=== PATIENT | female | born 1935 | race Caucasian/White ===

== ENCOUNTER 2018-10-16 13:49 | Inpatient (IN) | payer OTHER ==
[~2018-10-16] VITALS: Ht 152.4 cm; Wt 63.0 kg
[~2018-10-16 13:49] MED LIST: ALBU8.5H8 INH; ASPI-903 PO; CARV25TA79 PO; FURO-109 PO; HYDR25TA6 PO; LEVO75TA5 PO; Levofloxacin PO; OMEP20CA16 PO; ZOC10 PO
--- NOTE | 2018-10-16 17:02 | ERD ---
ER Documentation Chief Complaint Chief Complaint SOB HPI The patient is a 83-year-old female, presenting to the ER because of acute d yspnea, dry cough for the last 2 days, worse today. She had similar symptoms previously, denies chest pain, abdominal pain, vomiting, dysuria, diarrhea. She does not smoke nor drink Past medical history: Dyslipidemia, hypertension, hypothyroidism, history of CHF, GERD Past surgical history: None ROS All systems reviewed and are negative except as per history of present illness. Medications Home Meds Reported Medications Albuterol Sulfate (Proair Respiclick) 90 Mcg Aer.pow.ba, 1 PUFF INHALATION Q4 PRN for WHEEZING AND SOB, #1 BOTTLE 10/16/18 Levothyroxine Sodium* (Levothyroxine Sodium*) 75 Mcg Tablet, 75 MCG PO BEFORE BREAKFAST, #30 TAB 10/16/18 Carvedilol* (Carvedilol*) 25 Mg Tablet, 25 MG PO DAILY, #60 TAB 10/16/18 Simvastatin* (Zocor*) 10 Mg Tablet, 10 MG PO QHS, #30 TAB 10/16/18 Allopurinol* (Allopurinol*) 100 Mg Tablet, 100 MG PO DAILY, TAB 10/16/18 Aspirin* (Aspirin* EC) 81 Mg Tablet.dr, 81 MG PO DAILY, TAB 10/16/18 Discontinued Reported Medications Aspirin* (Aspirin* Chew) 81 Mg Tab.chew, 81 MG PO DAILY 09/02/12 Simvastatin (Simvastatin) 10 Mg Tablet, 10 MG PO DAILY 09/02/12 Levothyroxine Sodium* (Levothyroxine Sodium*) 75 Mcg Tablet, 75 MCG PO DAILY 09/02/12 Carvedilol* (Carvedilol*) 25 Mg Tablet, 25 MG PO DAILY 09/02/12 Omeprazole* (Omeprazole*) 20 Mg Capsule.dr, 20 MG PO DAILY 09/02/12 Hydrochlorothiazide (Hydrochlorothiazide) 25 Mg Tablet, 25 MG PO DAILY 09/02/12 Discontinued Scripts Albuterol Sulfate* (Proair HFA*) 8.5 Gm Hfa.aer.ad, 2 PUFF INH Q4H PRN for WHEEZING AND SOB for 30 Days, INHALER 3 Refills Prov:MARÍA SZYMANSKI. 06/08/15 Furosemide* (Lasix*) 40 Mg Tab, 20 MG PO DAILY for 30 Days, TAB 1 Refill Prov:MARÍA SZYMANSKI S. 06/08/15 [Levofloxacin] 500 MG TAB No Conflict Check, 500 MG PO DAILY@06 for 5 Days, TAB Prov:MARÍA SZYMANSKI S. 06/08/15 Allergies Allergies: Coded Allergies: No Known Drug Allergies (Verified Allergy, Mild, 10/16/18) PMhx/Soc History of Surgery: No Anesthesia Reaction: Yes Hx Neurological Disorder: No Hx Respiratory Disorders: Yes (PNA -4yrs ago) Hx Cardiac Disorders: Yes (hypertension; cholesterol) Hx Psychiatric Problems: No Hx Miscellaneous Medical Probl: Yes (HTN, hypothyroidism, hyperlipidemia) Hx Alcohol Use: No Hx Substance Use: No Hx Tobacco Use: No Physical Exam Vitals Vital Signs Date Temp Pulse Resp B/P (MAP) Pulse Ox O2 O2 Flow FiO2 Time Delivery Rate 10/16/18 65 16 139/67 100 18:04 (91) 10/16/18 82 20 95 21 17:32 10/16/18 Nasal 3 17:10 Cannula 10/16/18 98.4 66 18 175/80 91 13:54 (111) Physical Exam Const: No acute distress. Head: Atraumatic. Eyes: Normal Conjunctiva. ENT: Normal External Ears, Nose and Mouth. Neck: Full range of motion. No meningismus. Resp: Tachypneic, bilateral expiratory wheezes Cardio: Regular rate and rhythm. Abd: Soft, non distended, normal bowel sounds, non tender. Skin: No petechiae or rashes. Back: No midline or flank tenderness. Ext: No cyanosis, or edema. Neur: Awake and alert. No focal deficit Psych: Normal Mood and Affect. Result Diagram: 10/16/18 1727 10/16/18 1727 Results 24 hrs Laboratory Tests Test 10/16/18 17:27 White Blood Count 8.3 10^3/ul Red Blood Count 5.02 10^6/ul Hemoglobin 14.8 g/dl Hematocrit 45.6 % Mean Corpuscular Volume 90.8 fl Mean Corpuscular Hemoglobin 29.5 pg Mean Corpuscular Hemoglobin Concent 32.5 g/dl Red Cell Distribution Width 13.2 % Platelet Count 192 10^3/UL Mean Platelet Volume 12.4 fl Immature Granulocytes % 0.100 % Neutrophils % 44.3 % Lymphocytes % 40.7 % Monocytes % 6.7 % Eosinophils % 7.5 % Basophils % 0.7 % Nucleated Red Blood Cells % 0.0 /100WBC Immature Granulocytes # 0.010 10^3/ul Neutrophils # 3.7 10^3/ul Lymphocytes # 3.4 10^3/ul Monocytes # 0.6 10^3/ul Eosinophils # 0.6 10^3/ul Basophils # 0.1 10^3/ul Nucleated Red Blood Cells # 0.0 10^3/ul Prothrombin Time 13.0 Sec Prothrombin Time Ratio 1.0 INR International Normalized Ratio 0.97 Activated Partial Thromboplast Time 26.9 Sec Sodium Level 141 mmol/L Potassium Level 4.4 mmol/L Chloride Level 102 mmol/L Carbon Dioxide Level 31 mmol/L Anion Gap 8 Blood Urea Nitrogen 18 mg/dl Creatinine 0.68 mg/dl Est Glomerular Filtrat Rate mL/min mL/min Glucose Level 114 mg/dl Calcium Level 9.6 mg/dl Troponin I < 0.012 ng/ml Current Medications Medications Dose Sig/Lorenzo Start Time Status Last (Trade) Ordered Route PRN Stop Time Admin Dose Reason Admin 5 mg ONCE STAT 10/16/18 DC 10/16/18 Levalbuterol INH 17:09 17:32 (Xopenex 10/16/18 17:11 Neb) Ipratropium 2 mg ONCE STAT 10/16/18 DC 10/16/18 [place]on INH 17:09 17:32 (Atrovent 10/16/18 17:11 0.02% (Neb)) 125 mg ONCE ONCE 10/16/18 DC 10/16/18 Methylprednis IV 17:30 17:29 olone Sodium 10/16/18 17:31 Succinate (Solu-Medrol) Procedures/[place] [address] Radiology Main Line: [phone] DIAGNOSTIC IMAGING REPORT Patient: BRIANNA GARZA : 1935 Age: 83 Sex: F MR #: [id number] DOS: 10/16/18 1708 Ordering MD: FERNANDA HALL MD Location: E/R Room/Bed: PROCEDURE: XR Chest. CLINICAL INDICATION: Shortness of breath. TECHNIQUE: Single frontal view. COMPARISON: 06/08/2015. FINDINGS: The lungs are clear. The heart size is normal. There is no pleural effusion. There is no pneumothorax. IMPRESSION: 1. Normal chest radiograph. RPTAT: QQ .Juan Diego Bobo MD, MD Date Time Electronically viewed and signed by .Juan Diego Bobo MD, MD on 10/16/2018 18:24 .R/ CC: FERNANDA HALL MD [phone] EKG: Read by emergency physician Rate/Rhythm: Normal Sinus Rhythm 70 beats/min QRS, ST, T-waves: No ST elevation, no T inversion, low voltage Impression: Abnormal EKG MEDICAL MAKING DECISION: The patient is a 83-year-old female, presenting with acute asthma exacerbation with hypoxemia, was treated with Xopenex 5 mg and Atrovent 2 mg continuous nebulizer and Solu-Medrol 125 mg IV for acute asthma ex acerbation with good response. However her O2 saturation is fluctuated between 88 to 92%, unstable to be discharged The differential diagnoses considered include but are not limited to asthma, COPD, pneumonia, pulmonary embolus, pleural effusion, congestive heart failure. Departure Diagnosis: Primary Impression: Acute asthma Additional Impression: Hypoxemia Condition: Stable Comments I discussed the findings with the patient. I discussed the patient with Dr. Tariq at 6:50 PM, who was made aware of the lab, the treatment, the patient condition. The patient is admitted to [facility] Disclaimer: Inadvertent spelling and grammatical errors are likely due to EHR/dictation software use and do not reflect on the overall quality of patient care. Also, please note that the electronic time recorded on this note does not necessarily reflect the actual time of the patient encounter. FERNANDA HALL MD October 16, 2018 17:02
[2018-10-16] MEDS ORDERED: IPRATROPIUM (NEB) 0.5 MG/2.5 ML AMP INH STA (17:09)
[2018-10-16] MEDS ORDERED: LEVALBUTEROL (NEB) 1.25 MG/0.5 ML AMP INH STA (17:09)
[2018-10-16] MEDS ORDERED: ALLO100T PO (17:27)
[2018-10-16] MEDS ORDERED: ASPI-817 PO (17:27)
[2018-10-16] MEDS ORDERED: CARV25TA79 PO (17:28)
[2018-10-16] MEDS ORDERED: SIMV10TA PO (17:28)
[2018-10-16] MEDS ORDERED: LEVO75TA5 PO (17:29)
[2018-10-16] MEDS ORDERED: ALBU90AE INHALATION (17:29)
[2018-10-16] MEDS ORDERED: METHYLPREDNISOLONE 125 MG INJ IV ONE (17:30)
--- NOTE | 2018-10-16 19:55 | HP ---
Date/Time of Note Date/Time of Note DATE: 10/16/18 TIME: 19:55 Assessment/Plan VTE Prophylaxis SCD applied (from Nsg): Yes Pharmacological prophylaxis: NA/contraindicated Pharm contraindication: low risk/ambulating Lines/Catheters IV Catheter Type (from Nrsg): Saline Lock Assessment/Plan Hospital Course This is a 83-year-old female being admitted to the telemetry floor for: #1 dyspnea: Likely secondary to asthma exacerbation. Patient does have a history of diastolic CHF and her daughter does report that she has been having dyspnea on ambulation which she is unsure if is related to her current state. She does not appear to have any signs of volume overload at the current time. Nonetheless given her history we will also check a echocardiogram to assess heart morphology. Scheduled nebulizers, prednisone 40 mg burst p.o. #2 acute asthma exacerbation: Scheduled nebulizers, p.o. steroid burst, chest x- ray is normal and patient is not having any productive sputum and no fevers no antibiotics indicated at the current time. Hold beta-edu at the current time given her wheezing. #3 hypothyroidism: Check TSH, continue levothyroxine #4 history of diastolic CHF: Appears euvolemic at the current time, however will check a echocardiogram to assess heart morphology given her dyspnea. #5 hyperlipidemia: Check lipid panel, continue statin #6 DVT GI prophylaxis: SCDs, Protonix Further treatment strategy will be implemented as per the clinical course. Result Diagram: 10/16/18 1727 10/16/18 1727 Results 24hrs Laboratory Tests Test 10/16/18 17:27 White Blood Count 8.3 # Red Blood Count 5.02 Hemoglobin 14.8 Hematocrit 45.6 Mean Corpuscular Volume 90.8 Mean Corpuscular Hemoglobin 29.5 Mean Corpuscular Hemoglobin Concent 32.5 Red Cell Distribution Width 13.2 Platelet Count 192 Mean Platelet Volume 12.4 H Immature Granulocytes % 0.100 Neutrophils % 44.3 Lymphocytes % 40.7 Monocytes % 6.7 Eosinophils % 7.5 H Basophils % 0.7 Nucleated Red Blood Cells % 0.0 Immature Granulocytes # 0.010 Neutrophils # 3.7 Lymphocytes # 3.4 H Monocytes # 0.6 Eosinophils # 0.6 H Basophils # 0.1 Nucleated Red Blood Cells # 0.0 Prothrombin Time 13.0 Prothrombin Time Ratio 1.0 INR International Normalized Ratio 0.97 Activated Partial Thromboplast Time 26.9 Sodium Level 141 Potassium Level 4.4 Chloride Level 102 Carbon Dioxide Level 31 Anion Gap 8 Blood Urea Nitrogen 18 Creatinine 0.68 Est Glomerular Filtrat Rate mL/min Glucose Level 114 Calcium Level 9.6 Troponin I < 0.012 HPI/ROS Admit Date/Time Admit Date/Time Hx of Present Illness cc: SOB This is a 83-year-old female with a past medical history of asthma, hyperlipidemia, hypothyroidism who presented to the emergency department with cough and dyspnea since Monday. Family was present at the bedside. Family patient reported that patient started expensing a dry cough on Monday and shortness of breath. She had dyspnea with ambulating. Family did report that the shortness of breath and her breathing got worse and they did notice that she was wheezing. Denies any fevers or productive phlegm. allergies: nkda meds: ROS Const: As per HPI Eyes : No pain discharge or redness or change in visual acuity ENT: No pain, sore throat, congestion, congestion, dysphagia or discharge Respiratory: As per HPI Cardiovascular: No chest pain, palpitation, PND, or edema GI : no change in appetite, abdominal pain, nausea, vomiting, diarrhea, constipation, or change in the color his stool Genitourinary: No dysuria, hematuria, flank pain , discharge or CVA tenderness Musculoskeletal: No joint pain, back pain, neck pain, restricted range of motion in neck or joints Skin: No rash, bruising or hives Neuro: No headache, dizziness, syncope, seizure, focal weakness Endocrine: No polyuria, polydipsia, temperature intolerance Psych: No hallucination, depression, anxiety or suicidal ideation PMH/Family/Social Past Medical History Dyslipidemia, hypertension, hypothyroidism, history of diastolic CHF, GERD Medications Current Medications Allopurinol (Zyloprim) 100 mg DAILY PO ; Start 10/17/18 at 09:00; Status UNV Aspirin (Halfprin) 81 mg DAILY PO ; Start 10/17/18 at 09:00; Status UNV Levothyroxine Sodium (Synthroid) 75 mcg BEFORE BREAKFAST PO ; Start 10/17/18 at 07:00; Status UNV Miscellaneous Information 10 mg QHS PO ; Start 10/16/18 at 21:00; Status UNV IV Flush (NS 3 ml) 3 ml PER PROTOCOL IV ; Start 10/16/18 at 20:00; Status UNV Ondansetron HCl (Zofran Inj) 4 mg Q6H PRN IV NAUSEA/VOMITING; Start 10/16/18 at 20:00; Status UNV Acetaminophen (Tylenol Tab) 650 mg Q6H PRN PO .PAIN 1-3 OR TEMP; Start 10/16/18 at 20:00; Status UNV Docusate Sodium (Colace) 100 mg Q12H PRN PO .CONSTIPATION; Start 10/16/18 at 20:00; Status UNV Bisacodyl (Dulcolax) 5 mg DAILY PRN PO .CONSTIPATION; Start 10/16/18 at 20:00; Status UNV Pantoprazole (Protonix Tab) 40 mg DAILY@06 PO ; Start 10/17/18 at 06:00; Status UNV Albuterol/ Ipratropium (Duoneb) 3 ml Q4H RESP THERAPY HHN ; Start 10/16/18 at 21:00; Status UNV Levalbuterol (Xopenex Neb) 1.25 mg Q2 PRN HHN SHORTNESS OF BREATH; Start 10/16/18 at 20:00; Status UNV Coded Allergies: No Known Drug Allergies (Verified Allergy, Mild, 10/16/18) Past Surgical History Past Surgical Hx: no surgical history Family History Significant Family History: no pertinent family hx Social History Alcohol Use: none Smoking Status: Never smoker Drug Use: none Exam/Review of Systems Vital Signs Vitals Vital Signs Date Temp Pulse Resp B/P (MAP) Pulse Ox O2 O2 Flow FiO2 Time Delivery Rate 10/16/18 66 19 126/70 97 Nasal 3.0 19:21 (88) Cannula 10/16/18 21 17:32 10/16/18 98.4 13:54 Exam Exam General: Patient is a pleasant female currently lying in bed in no acute distress, but she does have a dry cough. HEENT: Atraumatic, normocephalic. The pupils are equal, round and reactive. Extraocular motor are intact Neck: Supple with full range of motion. No rigidity or meningismus Chest: Nontender Lungs: Expiratory wheezing, nonlabored breathing, dry cough Heart: Normal S1-S2, Regular rhythm and rate. No murmur, S3, or S4 Abdomen: Soft , morbidly obese, nontender, nondistended , bowel sounds are present. No guarding no rebound tenderness , No masses or organomegaly. No costovertebral temporal angle mass Extremities: Normal to inspection, no edema no cyanosis Neurologic: Normal mental status, speech normal, cranial nerves II through XII are intact, motor and sensory are intact, no focal weakness Additional Comments PROCEDURE: XR Chest. CLINICAL INDICATION: Shortness of breath. TECHNIQUE: Single frontal view. COMPARISON: 06/08/2015. FINDINGS: The lungs are clear. The heart size is normal. There is no pleural effusion. There is no pneumothorax. IMPRESSION: 1. Normal chest radiograph. RPTAT: QQ .Juan Diego Bobo MD, MD Date Time Electronically viewed and signed by .Juan Diego Bobo MD, MD on 10/16/2018 18:24 .R/ CC: FERNANDA HALL MD [phone] NOE YOST October 16, 2018 19:55
[2018-10-16] MEDS ORDERED: NACL 0.9% 3 ML SYG IV SCH (20:00)
[2018-10-16] MEDS ORDERED: ONDANSETRON 4 MG INJ IV PRN (20:00)
[2018-10-16] MEDS ORDERED: BISACODYL (EC) 5 MG TAB PO PRN (20:00)
[2018-10-16] MEDS ORDERED: ACETAMINOPHEN 325 MG TAB PO PRN (20:00)
[2018-10-16] MEDS ORDERED: LEVALBUTEROL (NEB) 1.25 MG/0.5 ML AMP HHN PRN (20:00)
[2018-10-16] MEDS ORDERED: DOCUSATE SODIUM 100 MG CAP PO PRN (20:00)
[2018-10-16] MEDS: IPRATROPIUM (NEB) 0.5 MG/2.5 ML AMP HHN SCH ×2 (20:26→20:27)
[2018-10-16] MEDS: LEVALBUTEROL (NEB) 1.25 MG/0.5 ML AMP HHN SCH (20:26)
[2018-10-16] MEDS ORDERED: ALBUTEROL/IPRATROPIUM (NEB) 3 ML AMP HHN SCH (21:00)
[2018-10-16 22:45] VITALS: Ht 152.4 cm; Wt 63.0 kg
[2018-10-16] MEDS: ATORVASTATIN 10 MG TAB PO SCH (23:08)
[2018-10-17] VITALS (11 sets, daily range): BP systolic 115–135; BP diastolic 55–64; PULSE 69–93; RESP 17–20
[2018-10-17] MEDS: LEVALBUTEROL (NEB) 1.25 MG/0.5 ML AMP HHN SCH ×6 (01:33→20:40)
[2018-10-17] MEDS: IPRATROPIUM (NEB) 0.5 MG/2.5 ML AMP HHN SCH ×6 (01:33→20:40)
[2018-10-17] MEDS: PANTOPRAZOLE (EC) 40 MG TAB PO SCH (06:24)
[2018-10-17] MEDS: LEVOTHYROXINE 75 MCG TAB PO SCH (06:24)
[2018-10-17] MEDS: GUAIFENESIN/CODEINE 5ML CUP PO PRN ×2 (06:31→22:17)
[2018-10-17] MEDS: ASPIRIN (EC) 81 MG TAB PO SCH (08:03)
[2018-10-17] MEDS: predniSONE 20 MG TAB PO SCH (08:04)
[2018-10-17] MEDS: ALLOPURINOL 100 MG TAB PO SCH (08:04)
--- NOTE | 2018-10-17 12:01 | PN ---
Date/Time of Note Date/Time of Note DATE: 10/17/18 TIME: 11:58 Assessment/Plan VTE [place]axis [place] [facility] [place]: 5 [place]CD [place] [facility] [place] Yes Pharmacological prophylaxis: other Pharm contraindication: low risk/ambulating Lines/Catheters IV Catheter Type (from [facility]): Saline Lock Urinary Cath still in place: No Assessment/Plan Assessment/Plan 1. Asthma, acute attack, improving, continue treatment 2. Hypothyroidism, on synthroid 3. h/o diastilic CHF, compensated 4. Dyslipidemia, on statin 5. DVT prophylaxis: SCDs Result Diagram: 10/17/1844 10/17/1844 Results 24hrs Laboratory Tests Test 10/16/18 17:27 10/17/18 05:44 White Blood Count 8.3 # 4.3 #L Red Blood Count 5.02 4.85 Hemoglobin 14.8 14.4 Hematocrit 45.6 44.0 Mean Corpuscular Volume 90.8 90.7 Mean Corpuscular Hemoglobin 29.5 29.7 Mean Corpuscular Hemoglobin Concent 32.5 32.7 Red Cell Distribution Width 13.2 13.2 Platelet Count 192 182 Mean Platelet Volume 12.4 H 12.9 H Immature Granulocytes % 0.100 0.500 H Neutrophils % 44.3 69.6 Lymphocytes % 40.7 29.2 Monocytes % 6.7 0.7 Eosinophils % 7.5 H 0.0 Basophils % 0.7 0.0 Nucleated Red Blood Cells % 0.0 0.0 Immature Granulocytes # 0.010 0.020 Neutrophils # 3.7 3.0 Lymphocytes # 3.4 H 1.2 Monocytes # 0.6 0.0 L Eosinophils # 0.6 H 0.0 Basophils # 0.1 0.0 Nucleated Red Blood Cells # 0.0 0.0 Prothrombin Time 13.0 Prothrombin Time Ratio 1.0 INR International Normalized Ratio 0.97 Activated Partial Thromboplast Time 26.9 Sodium Level 141 142 Potassium Level 4.4 4.0 Chloride Level 102 105 Carbon Dioxide Level 31 27 Anion Gap 8 10 Blood Urea Nitrogen 18 25 H Creatinine 0.68 0.79 Est Glomerular Filtrat Rate mL/min Glucose Level 114 158 Calcium Level 9.6 9.7 Troponin I < 0.012 Hemoglobin A1c 5.6 Magnesium Level 1.8 Total Bilirubin 0.5 Direct Bilirubin 0.00 Indirect Bilirubin 0.5 Aspartate Amino Transf (AST/SGOT) 28 Alanine Aminotransferase (ALT/SGPT) 19 Alkaline Phosphatase 60 B-Type Natriuretic Peptide 405 Total Protein 7.7 Albumin 3.9 Globulin 3.80 H Albumin/Globulin Ratio 1.02 Triglycerides Level 73 Cholesterol Level 147 LDL Cholesterol, Calculated 95 HDL Cholesterol 37 Cholesterol/HDL Ratio 3.9 Thyroid Stimulating Hormone (TSH) 0.495 Subjective 24 Hr Interval Summary Free Text/Dictation much less shortness of breath, no cough, no fever or chills Exam/Review of Systems Exam Vitals Vital Signs Date Temp Pulse Resp B/P (MAP) Pulse Ox O2 O2 Flow FiO2 Time Delivery Rate 10/17/18 97.8 74 20 129/63 92 Nasal 11:13 (85) Cannula 10/17/18 1.0 09:02 10/17/18 21 04:42 Intake and Output 10/16/18 10/16/18 10/17/18 1515:00 23:00 07:00 IntakeIntake Total 500 ml OutputOutput Total 3 ml BalanceBalance 497 ml Constitutional: alert, oriented, well developed Psych: no complaints, nl mood/affect Head: normocephalic, atraumatic Eyes: nl conjunctiva, EOMI, nl lids, nl sclera, PERRL ENMT: nl external ears & nose, nl lips & teeth, nl nasal mucosa & septum Neck: supple, non-tender Respiratory: clear to auscultation, diminished breath sounds; No congested cough, No crackles/rales, No intercostal retraction, No labored breathing, No respirations, No tactile fremitus, No wheezing, No other Cardiovascular: regular rate and rhythm, nl pulses; No bruits, No diastolic murmur, No edema, No gallop, No irregular rhythm, No jugular venous distention (JVD), No murmurs/extra sounds, No rub, No systolic murmur, No S3, No S4, No other Gastrointestinal: soft, nl liver, spleen Musculoskeletal: nl extremities to inspection Extremities: normal pulses; No calf tenderness, No cyanosis, No clubbing, No edema, No pitting pedal edema, No palpable cord, No tenderness, No other Neurological: [employer] II-XII intact, nl mental status, nl strength Results Results 24hrs Laboratory Tests Test 10/16/18 17:27 10/17/18 05:44 White Blood Count 8.3 # 4.3 #L Red Blood Count 5.02 4.85 Hemoglobin 14.8 14.4 Hematocrit 45.6 44.0 Mean Corpuscular Volume 90.8 90.7 Mean Corpuscular Hemoglobin 29.5 29.7 Mean Corpuscular Hemoglobin Concent 32.5 32.7 Red Cell Distribution Width 13.2 13.2 Platelet Count 192 182 Mean Platelet Volume 12.4 H 12.9 H Immature Granulocytes % 0.100 0.500 H Neutrophils % 44.3 69.6 Lymphocytes % 40.7 29.2 Monocytes % 6.7 0.7 Eosinophils % 7.5 H 0.0 Basophils % 0.7 0.0 Nucleated Red Blood Cells % 0.0 0.0 Immature Granulocytes # 0.010 0.020 Neutrophils # 3.7 3.0 Lymphocytes # 3.4 H 1.2 Monocytes # 0.6 0.0 L Eosinophils # 0.6 H 0.0 Basophils # 0.1 0.0 Nucleated Red Blood Cells # 0.0 0.0 Prothrombin Time 13.0 Prothrombin Time Ratio 1.0 INR International Normalized Ratio 0.97 Activated Partial Thromboplast Time 26.9 Sodium Level 141 142 Potassium Level 4.4 4.0 Chloride Level 102 105 Carbon Dioxide Level 31 27 Anion Gap 8 10 Blood Urea Nitrogen 18 25 H Creatinine 0.68 0.79 Est Glomerular Filtrat Rate mL/min Glucose Level 114 158 Calcium Level 9.6 9.7 Troponin I < 0.012 Hemoglobin A1c 5.6 Magnesium Level 1.8 Total Bilirubin 0.5 Direct Bilirubin 0.00 Indirect Bilirubin 0.5 Aspartate Amino Transf (AST/SGOT) 28 Alanine Aminotransferase (ALT/SGPT) 19 Alkaline Phosphatase 60 B-Type Natriuretic Peptide 405 Total Protein 7.7 Albumin 3.9 Globulin 3.80 H Albumin/Globulin Ratio 1.02 Triglycerides Level 73 Cholesterol Level 147 LDL Cholesterol, Calculated 95 HDL Cholesterol 37 Cholesterol/HDL Ratio 3.9 Thyroid Stimulating Hormone (TSH) 0.495 Medications Medication Current Medications Allopurinol (Zyloprim) 100 mg DAILY PO Last administered on 10/17/18at 08:04; Admin Dose 100 MG; Start 10/17/18 at 09:00 Aspirin (Halfprin) 81 mg DAILY PO Last administered on 10/17/18at 08:03; Admin Dose 81 MG; Start 10/17/18 at 09:00 Levothyroxine Sodium (Synthroid) 75 mcg BEFORE BREAKFAST PO Last administered on 10/17/18 06:24; Admin Dose 75 MCG; Start 10/17/18 at 07:00 Atorvastatin Calcium (Lipitor) 10 mg QHS PO Last administered on 10/16/18 23:08; Admin Dose 10 MG; Start 10/16/18 at 21:00 IV Flush (NS 3 ml) 3 ml PER PROTOCOL IV ; Start 10/16/18 at 20:00 Ondansetron HCl (Zofran Inj) 4 mg Q6H PRN IV NAUSEA/VOMITING; Start 10/16/18 at 20:00 Acetaminophen (Tylenol Tab) 650 mg Q6H PRN PO .PAIN 1-3 OR TEMP; Start 10/16/18 at 20:00 Docusate Sodium (Colace) 100 mg Q12H PRN PO .CONSTIPATION; Start 10/16/18 at 20:00 Bisacodyl (Dulcolax) 5 mg DAILY PRN PO .CONSTIPATION; Start 10/16/18 at 20:00 Pantoprazole (Protonix Tab) 40 mg DAILY@06 PO Last administered on 10/17/18 06:24; Admin Dose 40 MG; Start 10/17/18 at 06:00 Levalbuterol (Xopenex Neb) 1.25 mg Q2H RESP THERAPY PRN HHN SHORTNESS OF BREATH; Start 10/16/18 at 20:00 Levalbuterol (Xopenex Neb) 1.25 mg Q4H RESP THERAPY HHN Last administered on 10/17/18 08:59; Admin Dose 1.25 MG; Start 10/16/18 at 21:00 Ipratropium [place] (Atrovent 0.02% (Neb)) 0.5 mg Q4H RESP THERAPY HHN Last administered on 10/17/18 08:59; Admin Dose 0.5 MG; Start 10/16/18 at 20:00 Guaifenesin/ Codeine Phosphate (Robitussin Ac Liquid Cup) 5 ml Q4H PRN PO COUGH Last administered on 10/17/18 06:31; Admin Dose 5 ML; Start 10/17/18 at 06:30 Prednisone (Prednisone) 40 mg DAILY PO Last administered on 10/17/18 08:04; Admin Dose 40 MG; Start 10/17/18 at 09:00 RIVER ROSE MD October 17, 2018 12:01
--- NOTE | 2018-10-17 14:45 | RADRPT ---
Echocardiogram Report Patient Name: BRIANNA GARZAPatient ID: [id number] : 1935 (83y 3m)Study Date: 10/17/2018 8:46:30 AM Gender: FAccession #: [id number] Tech: Marin Augilar [facility] Location: [id number] Ref.Physician: NOE YOST Height(Cm): BSA: Weight(Kg): Quality: AdequateOrder Physician: NOE YOST Account #: Procedures: Echocardiographic Report: Transthoracic echocardiogram with complete 2D, M-Mode, and doppler examination. Indications: Dyspnea. Measurements: 2D/M Mode Doppler Measurement Value Normal Range Measurement Value Normal Range LVIDd 2D 3.7 [ 3.8 - 5.2 ] cm AV Mean Quinn 1.7 [ 70.0 - 90.0 ] cm/sec LVIDs 2D 1.9 [ 2.2 - 3.5 ] cm AV Mean PG 12.0 [ 2.0 - 4.0 ] mmHg LVPWd 2D 0.9 [ 0.6 - 0.9 ] cm AV VTI 44.5 cm IVSd 2D 0.9 [ 0.6 - 0.9 ] cm AI Peak PG 54.0 mmHg AoR Diam 2D 2.4 [ 2.3 - 3.1 ] cm AI Peak Quinn 3.7 cm/sec EDV 2D 57.4 [ 46.0 - 106.0 ] ml AI PHT 401.0 msec ESV 2D 10.7 [ 14.0 - 42.0 ] ml LVOT Mean Quinn 0.8 [ 60.0 - 80.0 ] cm/sec EF 2D 81.4 [ 54.0 - 74.0 ] percent LVOT Mean PG 3.0 [ 1.0 - 3.0 ] mmHg LA Dimen 2D 3.3 [ 2.7 - 3.8 ] cm LVOT Peak Quinn 1.2 [ 70.0 - 110.0 ] cm/sec LVOT Peak PG 6.0 [ 2.0 - 6.0 ] mmHg LVOT VTI 25.2 [ 20.0 - 30.0 ] cm MV E Peak Quinn 1.2 [ 60.0 - 130.0 ] cm/sec MV A Peak Quinn 1.4 [ 100.0 - 120.0 ] cm/sec MV E/A 0.9 [ 0.8 - 1.5 ] ratio MV Decel Time 306 [ 104 - 258 ] msec Lat E` Quinn 0.1 [ 10.0 - 15.0 ] cm/sec Lateral E/E` 21.0 [ 1.0 - 2.0 ] ratio MV E/A 0.9 [ 0.8 - 1.5 ] ratio TR Peak Quinn 2.2 [ 100.0 - 280.0 ] cm/sec TR Peak PG 19.0 mmHg RVSP 22.0 [ 10.0 - 36.0 ] mmHg RA Pressure 3.0 mmHg Findings: Left Ventricle: Normal left ventricular systolic function. Normal left ventricular cavity size. Normal left ventricular wall thickness. Ejection fraction is visually estimated at 65 %. Tissue Doppler/Mitral Doppler indices are consistent with impaired relaxation (Stage I diastolic dysfunction). Right Ventricle: Normal right ventricular size. Normal right ventricular systolic function. Left Atrium: There is moderate enlargement of left atrium. Right Atrium: The right atrium is normal in size. Mitral Valve: Mild mitral leaflet calcification. Moderate mitral annular calcification. Mild mitral valve regurgitation. Aortic Valve: Aortic sclerosis without significant stenosis. Mild aortic valve regurgitation. Tricuspid Valve: Normal appearance and function of the tricuspid valve with trace physiologic regurgitation. Normal right ventricular systolic pressure. Estimated peak PA systolic pressure 22 mmHg. There is trace to mild tricuspid regurgitation. Pulmonic Valve: Normal pulmonic valve appearance. Pericardium: Normal pericardium with no significant pericardial effusion. Aorta: Normal aortic root. IVC: Normal size and normal respiratory collapse consistent with normal right atrial pressure. Conclusions: Normal left ventricular systolic function. Normal left ventricular cavity size. Normal left ventricular wall thickness. Ejection fraction is visually estimated at 65 %. Tissue Doppler/Mitral Doppler indices are consistent with impaired relaxation (Stage I diastolic dysfunction). Aortic sclerosis without significant stenosis. Mild aortic valve regurgitation. Estimated peak PA systolic pressure 22 mmHg. Normal size and normal respiratory collapse consistent with normal right atrial pressure. Electronically Signed By: Raphael Young 2018-10-17 14:45:26 PDT
[2018-10-17] MEDS: ATORVASTATIN 10 MG TAB PO SCH (20:48)
[2018-10-18] VITALS (9 sets, daily range): BP systolic 107–141; BP diastolic 55–65; PULSE 68–178; RESP 18–20
[2018-10-18] MEDS: LEVALBUTEROL (NEB) 1.25 MG/0.5 ML AMP HHN SCH ×5 (00:17→17:00)
[2018-10-18] MEDS: IPRATROPIUM (NEB) 0.5 MG/2.5 ML AMP HHN SCH ×5 (00:17→17:00)
[2018-10-18] MEDS: PANTOPRAZOLE (EC) 40 MG TAB PO SCH (06:15)
[2018-10-18] MEDS: LEVOTHYROXINE 75 MCG TAB PO SCH (06:16)
[2018-10-18] MEDS: ASPIRIN (EC) 81 MG TAB PO SCH (08:22)
[2018-10-18] MEDS: ALLOPURINOL 100 MG TAB PO SCH (08:22)
[2018-10-18] MEDS: predniSONE 20 MG TAB PO SCH (08:22)
[2018-10-18] MEDS ORDERED: PRED20TA PO (13:56)
--- NOTE | 2018-10-18 13:59 | DS ---
Date/Time of Note Date/Time of Note DATE: 10/18/18 TIME: 13:57 Discharge Summary Admission/Discharge Info Admit Date/Time October 18, 2018 at 07:29 Discharge Date/Time Discharge Diagnosis 1. Asthma, acute attack, improved, tapering dosage of prednisone 2. Hypothyroidism, on synthroid 3. h/o diastilic CHF, compensated 4. Dyslipidemia, on statin Patient Condition: Stable Hospital Course This is a 83-year-old female with a past medical history of asthma, hyperli pidemia, hypothyroidism who presented to the emergency department with cough and dyspnea since Monday. Family was present at the bedside. Family patient reported that patient started expensing a dry cough on Monday and shortness of breath. She had dyspnea with ambulating. Family did report that the shortness of breath and her breathing got worse and they did notice that she was wheezing. Denies any fevers or productive phlegm. Patient is treated with nebulizer, steroid, symptoms improved. I will discharge her on tapering dosage of prednisone. Coreg is stopped. Blood pressure is well controlled without it. Home Meds Active Scripts Prednisone* (Prednisone*) 20 Mg Tab, 20 MG PO DAILY for 3 Days, TAB prednisone 20 mg po daily for 3 days, then 10 mg po daily for 3 days Prov:RIVER ROSE MD 10/18/18 Reported Medications Albuterol Sulfate (Proair Respiclick) 90 Mcg Aer.pow.ba, 1 PUFF INHALATION Q4 PRN for WHEEZING AND SOB, #1 BOTTLE 10/16/18 Levothyroxine Sodium* (Levothyroxine Sodium*) 75 Mcg Tablet, 75 MCG PO BEFORE BREAKFAST, #30 TAB 10/16/18 Simvastatin* (Zocor*) 10 Mg Tablet, 10 MG PO QHS, #30 TAB 10/16/18 Allopurinol* (Allopurinol*) 100 Mg Tablet, 100 MG PO DAILY, TAB 10/16/18 Aspirin* (Aspirin* EC) 81 Mg Tablet.dr, 81 MG PO DAILY, TAB 10/16/18 Discontinued Reported Medications Carvedilol* (Carvedilol*) 25 Mg Tablet, 25 MG PO DAILY, #60 TAB 10/16/18 Aspirin* (Aspirin* Chew) 81 Mg Tab.chew, 81 MG PO DAILY 09/02/12 Simvastatin (Simvastatin) 10 Mg Tablet, 10 MG PO DAILY 09/02/12 Levothyroxine Sodium* (Levothyroxine Sodium*) 75 Mcg Tablet, 75 MCG PO DAILY 09/02/12 Carvedilol* (Carvedilol*) 25 Mg Tablet, 25 MG PO DAILY 09/02/12 Omeprazole* (Omeprazole*) 20 Mg Capsule.dr, 20 MG PO DAILY 09/02/12 Hydrochlorothiazide (Hydrochlorothiazide) 25 Mg Tablet, 25 MG PO DAILY 09/02/12 Discontinued Scripts Albuterol Sulfate* (Proair HFA*) 8.5 Gm Hfa.aer.ad, 2 PUFF INH Q4H PRN for WHEEZING AND SOB for 30 Days, INHALER 3 Refills Prov:AMRÍA SZYMANSKI S. 06/08/15 Furosemide* (Lasix*) 40 Mg Tab, 20 MG PO DAILY for 30 Days, TAB 1 Refill Prov:MARÍA SZYMANSKI S. 06/08/15 [Levofloxacin] 500 MG TAB No Conflict Check, 500 MG PO DAILY@06 for 5 Days, TAB Prov:MARÍA SZYMANSKI S. 06/08/15 Follow-up Plan PCP in one week Primary Care Provider [facility] Pending Labs Laboratory Tests Test 10/18/18 05:29 Sodium Level 139 mmol/L (135-144) Potassium Level 4.1 mmol/L (3.5-5.1) Chloride Level 103 mmol/L (97-110) Carbon Dioxide Level 30 mmol/L (21-31) Anion Gap 6 (5-13) Blood Urea Nitrogen 29 mg/dl (7-20) Creatinine 0.84 mg/dl (0.44-1.00) Est Glomerular Filtrat Rate mL/min mL/min (>60) Glucose Level 117 mg/dl (70-220) Calcium Level 9.0 mg/dl (8.4-10.2) RIVER ROSE MD October 18, 2018 13:59
--- NOTE | 2018-10-19 14:49 | RADRPT ---
Vent Rate: 70 bpm RR Interval: 0 msec AK Interval: 190 msec QRS Duration: 82 msec QT Interval: 398 msec QTC Interval: 429 msec P-R-T [place]: 4 - 68 - 12 degrees Normal sinus rhythm Low voltage QRS Borderline ECG Electronically Signed By: [facility]
== END 2018-10-18 17:20 | disposition home or self-care (01) | DRG 202 ==
LOC: E/R 13:49 → 6WM 18:51 → OBSVTOIN 10-18 07:29
PROVIDERS: ADMIT Internal Medicine; ATTEND Internal Medicine
DX: J45.901 Unspecified asthma with (acute) exacerbation (principal); I50.30 Unspecified diastolic (congestive) heart failure; E03.9 Hypothyroidism, unspecified; E78.5 Hyperlipidemia, unspecified
CPT/HCPCS: 36415; 71045; 80048; 80053; 80061; 83036; 83735; 83880; 84443; 84484; 85025; 85610; 85730; 93005; 93306; 94640; 94644; 94664; 96374; 97116; 97162; 97530; G0378; J2930; J7512